=== PATIENT | female | born 1965 | race Two or more races ===

== ENCOUNTER 2018-10-31 20:49 | Inpatient (IN) | payer MEDICARE, MEDICAID, OTHER | END 2018-11-08 21:58 | LOC: TELE 11-01 06:57 → ER 20:49 → TELE-EAST 11-03 15:34 | DX: G93.41 Metabolic encephalopathy (principal); N18.6 End stage renal disease; A41.9 Sepsis, unspecified organism; I12.0 Hypertensive chronic kidney disease with stage 5 chronic kidney disease or end stage renal disease; K52.9 Noninfective gastroenteritis and colitis, unspecified; R62.7 Adult failure to thrive; E87.5 Hyperkalemia; Z99.2 Dependence on renal dialysis; Z74.01 Bed confinement status; E11.319 Type 2 diabetes mellitus with unspecified diabetic retinopathy without macular edema; E11.22 Type 2 diabetes mellitus with diabetic chronic kidney disease; Z99.3 Dependence on wheelchair; G92 Toxic encephalopathy; L89.159 Pressure ulcer of sacral region, unspecified stage ==

== ENCOUNTER 2021-06-30 19:11 | Inpatient (IN) | payer MEDICARE, MEDICAID ==
[~2021-06-30] VITALS: Ht 121.9 cm; Wt 73.6 kg
[~2021-06-30 19:11] MED LIST: ALBUAER3; BACL10TA; CLON0.3T; HYDR50TA15; LISI-716; LORA0.5T20; METO25TA5; NAPR-591; ONDA-155; SIMV-8; SUMA25TA2; TRAM50TA2; [UNRECOGNIZED DRUG - CODE]
[2021-06-30 22:20] LABS: Basophils # (auto) 0.1 10 ^3/uL (0-0.2); Basophils % (auto) 2.5 % (0.0-2.0); Eosinophils # (auto) 0.3 10 ^3/uL (0-0.8); Eosinophils % (auto) 8.8 % (0.0-7.0); Hematocrit 29.6 % (36.0-46.0); Hemoglobin 9.8 g/dL (12.2-16.2); Lymphocytes # (auto) 0.6 10 ^3/uL (0.4-5.4); Lymphocytes % (auto) 17.9 % (10.0-50.0); Mean Corpuscular Hemoglobin 27.3 pg (28.0-32.0); Mean Corpuscular Volume 82.7 fL (80.0-100.0); Monocytes # (auto) 0.3 10 ^3/uL (0-1.3); Monocytes % (auto) 8.1 % (0.0-12.0); Neutrophils # (auto) 2.2 10 ^3/uL (1.6-8.6); Neutrophils % (auto) 62.7 % (37.0-80.0); Nucleated Red Blood Cells % 0.1 %; Red Blood Cells 3.58 10^6/uL (4.0-5.20); Red Cell Distribution Width 13.8 % (11.8-14.3); White Blood Cell 3.5 10^3/uL (4.4-10.8)
[2021-06-30 22:40] LABS: Potassium 3.4 mmol/L (3.5-5.1)
[2021-06-30 22:58] LABS: Albumin 2.9 g/dL (3.4-5.0); BUN/Creatinine Ratio 12.2; Bilirubin, Total 0.4 mg/dL (0.2-1.0); Calcium 8.8 mg/dL (8.5-10.1); Magnesium 2.7 mg/dL (1.6-2.6)
[2021-07-01] VITALS (9 sets, daily range): BP systolic 136–212; BP diastolic 54–89
[2021-07-01] MEDS ORDERED: HYDROcodone-ACET 5/325MG TAB PO PRN (01:00)
[2021-07-01] MEDS ORDERED: DOCUSATE SOD 100 MG CAP PO PRN (01:00)
[2021-07-01] MEDS ORDERED: LORazepam 2MG/ML-1ML VIAL IV PRN (01:00)
[2021-07-01] MEDS ORDERED: ACETAMINOPHEN 325 MG TAB PO PRN (01:00)
[2021-07-01] MEDS ORDERED: ONDANSETRON HCL 4 MG/2 ML VIAL IV ONE (01:30)
[2021-07-01] MEDS ORDERED: MORPHINE SULFATE 4 MG/ML SYR/VIAL IV ONE (01:30)
[2021-07-01] MEDS ORDERED: NITROGLYCERIN 0.4 MG SL TAB SL PRN (02:45)
[2021-07-01] MEDS ORDERED: MORPHINE SULFATE INJECTION 2 MG/ML SYRG IV PRN (02:45)
[2021-07-01] MEDS: hydrALAZINE HCL 20 MG/ML VL IV PRN ×4 (03:54→21:47)
[2021-07-01] MEDS ORDERED: amLODIPine BESYLATE 5 MG TAB PO ONE (05:30)
[2021-07-01] MEDS: SODIUM CHLOR 0.9% PF (SALINE LOCK) 10ML VIAL/SYR IV SCH ×3 (05:45→21:48)
[2021-07-01] MEDS ORDERED: hydrALAZINE HCL 25 MG TAB PO SCH ×3 (06:00→11:00)
[2021-07-01] MEDS: SEVELAMER 800 MG TAB PO SCH ×4 (08:41→18:00)
[2021-07-01] MEDS: FAMOTIDINE (10MG/ML) 2ML VL IV SCH (08:41)
[2021-07-01] MEDS: ASPirin 81 mg TAB PO SCH (08:42)
[2021-07-01] MEDS ORDERED: cloNIDine HCL 0.1 MG TAB PO ONE ×2 (09:00→12:45)
[2021-07-01] MEDS ORDERED: cloNIDine HCL 0.1 MG TAB PO PRN ×2 (09:00→12:45)
[2021-07-01] MEDS ORDERED: B-COMPLEX W/ C & FOLIC ACID(NEPHROVITE TAB) PO SCH (10:00)
[2021-07-01] MEDS ORDERED: CARVEDILOL 3.125 MG TAB PO SCH (10:00)
[2021-07-01] MEDS ORDERED: ASCORBIC ACID 500 MG TAB PO SCH (10:00)
[2021-07-01] MEDS ORDERED: ZINC SULFATE 220mg CAP or TAB PO SCH (10:00)
[2021-07-01] MEDS: NIFEdipine ER 30 MG TAB PO SCH ×2 (10:45→12:43)
[2021-07-01] MEDS ORDERED: hydrALAZINE HCL 20 MG/ML VL IV PRN (12:45)
[2021-07-01] MEDS ORDERED: EPOETIN ALFA-EPBX 10,000 UNIT/1ML VIAL SC SCH (13:00)
[2021-07-01 14:16] LABS: Basophils # (auto) 0 10 ^3/uL (0-0.2); Eosinophils # (auto) 0 10 ^3/uL (0-0.8); Hematocrit 29.2 % (36.0-46.0); Hemoglobin 9.8 g/dL (12.2-16.2); Lymphocytes # (auto) 0.5 10 ^3/uL (0.4-5.4); Lymphocytes % (auto) 13.9 % (10.0-50.0); Mean Corpuscular Hemoglobin 27.6 pg (28.0-32.0); Mean Corpuscular Hgb Conc. 33.6 g/dL (32.0-36.0); Mean Corpuscular Volume 82.2 fL (80.0-100.0); Monocytes # (auto) 0.2 10 ^3/uL (0-1.3); Monocytes % (auto) 5.9 % (0.0-12.0); Neutrophils # (auto) 2.8 10 ^3/uL (1.6-8.6); Neutrophils % (auto) 78.2 % (37.0-80.0); Nucleated Red Blood Cells % 0.1 %; Red Blood Cells 3.56 10^6/uL (4.0-5.20); Red Cell Distribution Width 13.1 % (11.8-14.3); White Blood Cell 3.6 10^3/uL (4.4-10.8)
[2021-07-01 14:30] LABS: Albumin 2.9 g/dL (3.4-5.0); Calcium 8.5 mg/dL (8.5-10.1); Potassium 4.1 mmol/L (3.5-5.1)
[2021-07-01] MEDS: ONDANSETRON HCL 4 MG/2 ML VIAL IV PRN ×2 (14:32→21:47)
[2021-07-01 14:35] LABS: Bilirubin, Total 0.4 mg/dL (0.2-1.0); Total Protein 7.4 g/dL (6.4-8.2)
[2021-07-01] MEDS ORDERED: HYDR50TA15 PO (16:26)
[2021-07-01] MEDS ORDERED: CARV12.544 PO (16:27)
[2021-07-01] MEDS ORDERED: LISI20TA28 PO (16:27)
[2021-07-01] MEDS ORDERED: LEVE500T32 PO (16:28)
[2021-07-01] MEDS ORDERED: PANT40TA2 PO (16:28)
[2021-07-01] MEDS: LABETALOL HCL 200 MG TAB PO SCH (21:48)
[2021-07-01] MEDS: ATORVASTATIN 20 MG TAB PO SCH (21:48)
[2021-07-02] MEDS: ONDANSETRON HCL 4 MG/2 ML VIAL IV PRN (01:58)
[2021-07-02] MEDS: hydrALAZINE HCL 20 MG/ML VL IV PRN (01:58)
[2021-07-02 05:00] VITALS: BP 152/56
[2021-07-02] MEDS: SODIUM CHLOR 0.9% PF (SALINE LOCK) 10ML VIAL/SYR IV SCH ×3 (06:07→22:09)
[2021-07-02] MEDS ORDERED: SODIUM CHL 0.9% 1000 ML BAG XX ONE (07:00)
[2021-07-02 07:19] LABS: Albumin 2.8 g/dL (3.4-5.0); Calcium 8.7 mg/dL (8.5-10.1); Potassium 3.8 mmol/L (3.5-5.1)
[2021-07-02 07:22] LABS: BUN/Creatinine Ratio 11.6
[2021-07-02 07:24] LABS: Bilirubin, Total 0.3 mg/dL (0.2-1.0)
[2021-07-02 07:42] LABS: Basophils # (auto) 0 10 ^3/uL (0-0.2); Basophils % (auto) 1.1 % (0.0-2.0); Eosinophils # (auto) 0 10 ^3/uL (0-0.8); Eosinophils % (auto) 0.7 % (0.0-7.0); Hematocrit 27.9 % (36.0-46.0); Hemoglobin 8.8 g/dL (12.2-16.2); Lymphocytes # (auto) 0.8 10 ^3/uL (0.4-5.4); Lymphocytes % (auto) 18.4 % (10.0-50.0); Mean Corpuscular Hemoglobin 27.6 pg (28.0-32.0); Mean Corpuscular Hgb Conc. 31.7 g/dL (32.0-36.0); Mean Corpuscular Volume 87.1 fL (80.0-100.0); Monocytes # (auto) 0.5 10 ^3/uL (0-1.3); Monocytes % (auto) 11.4 % (0.0-12.0); Neutrophils # (auto) 2.8 10 ^3/uL (1.6-8.6); Neutrophils % (auto) 68.4 % (37.0-80.0); Nucleated Red Blood Cells % 0.1 %; Red Cell Distribution Width 13.8 % (11.8-14.3); White Blood Cell 4.1 10^3/uL (4.4-10.8)
[2021-07-02 08:00] VITALS: BP 128/67
[2021-07-02] MEDS: SEVELAMER 800 MG TAB PO SCH ×3 (08:00→18:05)
[2021-07-02] MEDS ORDERED: POTASSIUM CHL 20MEQ/100ML 100 ML IV SCH (09:45)
[2021-07-02] MEDS ORDERED: POTASSIUM EFFERVESENT TAB 25 MEQ PO ONE (09:45)
[2021-07-02] MEDS: FAMOTIDINE (10MG/ML) 2ML VL IV SCH (09:48)
[2021-07-02] MEDS: ASPirin 81 mg TAB PO SCH (09:48)
[2021-07-02] MEDS: NIFEdipine ER 30 MG TAB PO SCH (09:49)
[2021-07-02] MEDS: LABETALOL HCL 200 MG TAB PO SCH ×2 (09:49→22:10)
[2021-07-02] MEDS ORDERED: amLODIPine BESYLATE 5 MG TAB PO SCH (10:00)
[2021-07-02 13:00] VITALS: BP 99/54
[2021-07-02 16:44] VITALS: BP 129/41
[2021-07-02] MEDS ORDERED: EPOETIN ALFA-EPBX 10,000 UNIT/1ML VIAL SC ONE (21:00)
[2021-07-02 22:00] VITALS: BP_SYST 147; BP_SYST 155; BP_DIAS 59; BP_DIAS 65
[2021-07-02] MEDS: ATORVASTATIN 20 MG TAB PO SCH (22:09)
[2021-07-03 04:50] VITALS: BP 162/59
[2021-07-03] MEDS: SODIUM CHLOR 0.9% PF (SALINE LOCK) 10ML VIAL/SYR IV SCH ×2 (06:23→14:00)
[2021-07-03 08:30] VITALS: BP 168/63
[2021-07-03] MEDS: SEVELAMER 800 MG TAB PO SCH ×3 (08:57→18:00)
[2021-07-03] MEDS: LABETALOL HCL 200 MG TAB PO SCH (08:57)
[2021-07-03] MEDS: FAMOTIDINE (10MG/ML) 2ML VL IV SCH (08:57)
[2021-07-03] MEDS: ASPirin 81 mg TAB PO SCH (08:57)
[2021-07-03] MEDS: NIFEdipine ER 30 MG TAB PO SCH (08:58)
[2021-07-03 12:30] VITALS: BP 178/63
[2021-07-03] MEDS: hydrALAZINE HCL 20 MG/ML VL IV PRN (12:44)
[2021-07-03 14:25] VITALS: BP 123/71
[2021-07-03 17:00] VITALS: BP 113/44
== END 2021-07-03 20:45 | disposition home or self-care (01) | DRG 91 ==
LOC: EDBD 19:11 → ER 19:11 → TELE 07-01 02:38 → TELE-WESTW 07-01 04:29
PROVIDERS: ADMIT Nurse Practitioner Family; ATTEND Nurse Practitioner Family
PROC: 5A1D70Z Performance of Urinary Filtration, Intermittent, Less than 6 Hours Per Day (ICD-10-PCS; principal; 2021-07-01)
DX: G92.8 Other toxic encephalopathy (principal); L89.154 Pressure ulcer of sacral region, stage 4; N18.6 End stage renal disease; E87.1 Hypo-osmolality and hyponatremia; N25.81 Secondary hyperparathyroidism of renal origin; J81.1 Chronic pulmonary edema; I13.11 Hypertensive heart and chronic kidney disease without heart failure, with stage 5 chronic kidney disease, or end stage renal disease; G92.9 Unspecified toxic encephalopathy; R55 Syncope and collapse; E87.6 Hypokalemia; E88.09 Other disorders of plasma-protein metabolism, not elsewhere classified; I16.0 Hypertensive urgency; Z99.2 Dependence on renal dialysis; D63.1 Anemia in chronic kidney disease; E66.01 Morbid (severe) obesity due to excess calories; F32.A Depression, unspecified; Z20.822 Contact with and (suspected) exposure to COVID-19; G40.909 Epilepsy, unspecified, not intractable, without status epilepticus; I25.10 Atherosclerotic heart disease of native coronary artery without angina pectoris; I25.5 Ischemic cardiomyopathy; Z87.891 Personal history of nicotine dependence; Z89.611 Acquired absence of right leg above knee; Z89.612 Acquired absence of left leg above knee; Z98.1 Arthrodesis status; Z68.26 Body mass index [BMI] 26.0-26.9, adult; T42.8X5A Adverse effect of antiparkinsonism drugs and other central muscle-tone depressants, initial encounter
CPT/HCPCS: 36415; 70450; 71045; 73030; 73060; 80053; 82542; 83605; 83690; 83735; 83880; 84484; 85025; 87081; 87340; 87426; 90935; 93005; 96374; 96375; G0378; J2405; J3490